=== PATIENT | male | born 1995 | race American Indian/Alaskan Native ===

== ENCOUNTER 2016-06-20 23:16 | Emergency (ER) | payer SELFPAY ==
[2016-06-20 23:44] VITALS: BP 107/73
== END 2016-06-21 02:05 | disposition left against medical advice (07) ==
LOC: ED 23:16
DX: M79.601 Pain in right arm (principal); M79.605 Pain in left leg; R51 Headache; Z53.21 Procedure and treatment not carried out due to patient leaving prior to being seen by health care provider

== ENCOUNTER 2017-11-26 15:48 | Emergency (ER) | payer SELFPAY ==
[2017-11-26 16:10] VITALS: BP 135/79
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
[2017-11-26] MEDS ORDERED: TYLENOL #3 PO ONE (18:29)
[2017-11-26] MEDS ORDERED: BOOSTRIX IM ONE (18:29)
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
[2017-11-26] MEDS ORDERED: PERCOCET 5/325 PO ONE (21:36)
[2017-11-26] MEDS ORDERED: ZOFRAN ODT PO ONE (21:36)
[2017-11-26] MEDS ORDERED: TRIPLE ANTIBIOTIC TP ONE (21:36)
== END 2017-11-26 22:40 | disposition left against medical advice (07) ==
LOC: ED 15:48
DX: S02.401A Maxillary fracture, unspecified side, initial encounter for closed fracture (principal); S91.012A Laceration without foreign body, left ankle, initial encounter; T70.1XXA Sinus barotrauma, initial encounter; S00.83XA Contusion of other part of head, initial encounter; F12.90 Cannabis use, unspecified, uncomplicated; X99.1XXA Assault by knife, initial encounter; Y93.89 Activity, other specified; Y99.8 Other external cause status; Y92.098 Other place in other non-institutional residence as the place of occurrence of the external cause
CPT/HCPCS: 70450; 70486; 90471; 90715; A6250; Q0162